=== PATIENT | female | born 1990 | race Two or more races ===

== ENCOUNTER 2018-01-31 11:15 | Outpatient (CLI) | payer OTHER | END 2018-01-31 15:36 | disposition home or self-care (01) | LOC: RAD 11:15 | DX: M54.9 Dorsalgia, unspecified (principal) ==

== ENCOUNTER → 2018-01-31 | Outpatient (CLI) | payer OTHER ==
[~2018-01-31] MED LIST: CEFADROXIL500 MG PO; ZANTAC150 MG PO
== END | disposition home or self-care (01) ==
LOC: PPHC 10:12
DX: M54.89 Other dorsalgia (principal)

== ENCOUNTER 2019-02-14 15:02 | Outpatient (CLI) | payer OTHER | END 2019-02-14 15:27 | disposition home or self-care (01) | LOC: SONOGRAMA 15:02 → MAMO-SONO 15:15 → SONOGRAMA 15:27 | DX: R10.2 Pelvic and perineal pain (principal) ==

== ENCOUNTER → 2019-03-13 11:24 | Outpatient (CLI) | payer OTHER | END | disposition home or self-care (01) | LOC: LAB 11:24 | DX: N30.00 Acute cystitis without hematuria (principal) ==

== ENCOUNTER 2019-10-20 13:18 | Outpatient (CLI) | payer OTHER | END 2019-10-20 13:25 | disposition home or self-care (01) | LOC: SONOGRAMA 13:18 | DX: R10.2 Pelvic and perineal pain (principal); N83.00 Follicular cyst of ovary, unspecified side ==

== ENCOUNTER 2020-04-02 15:09 | Outpatient (CLI) | payer OTHER | END 2020-04-02 15:18 | disposition home or self-care (01) | LOC: SONOGRAMA 15:09 | DX: R10.11 Right upper quadrant pain (principal); N30.90 Cystitis, unspecified without hematuria ==

== ENCOUNTER 2020-12-08 06:10 | Inpatient (IN) | payer OTHER ==
[~2020-12-08] VITALS: Ht 170.2 cm; Wt 71.7 kg
[2020-12-10] MEDS ORDERED: CODE1TAB37 PO (07:53)
[2020-12-10] MEDS ORDERED: KETO10TA2 PO (07:54)
== END 2020-12-10 13:04 | disposition home or self-care (01) | DRG 743 ==
LOC: CIR.AMB 06:10 → O/R 11:19 → OB/GYN 11:19 → CIR.AMB 12:45 → OB/GYN 12-10 13:04
PROVIDERS: ADMIT Obstetrics & Gynecology Maternal & Fetal Medicine; ATTEND Obstetrics & Gynecology Maternal & Fetal Medicine
PROC: 0UB10ZZ Excision of Left Ovary, Open Approach (ICD-10-PCS; principal; 2020-12-08 09:15)
DX: D27.1 Benign neoplasm of left ovary (principal)

== ENCOUNTER 2022-09-07 11:54 | Emergency (ER) | payer OTHER ==
[~2022-09-07] VITALS: Ht 167.6 cm; Wt 77.1 kg
[~2022-09-07 11:54] MED LIST changes: +CODE1TAB37 PO; +KETO10TA2 PO
== END 2022-09-07 13:23 | disposition home or self-care (01) ==
LOC: ER 11:54
DX: L20.9 Atopic dermatitis, unspecified (principal); Z91.013 Allergy to seafood

== ENCOUNTER 2023-12-06 11:48 | Emergency (ER) | payer OTHER ==
[~2023-12-06] VITALS: Ht 167.6 cm; Wt 80.3 kg
[2023-12-06 13:35] LABS: HEMATOCRIT 41.1 % (36.0-45.00); HEMOGLOBIN 14.2 g/dL (12.0-15.00); MEAN CORPUSCULAR HEMOGLOBIN 32.4 pg (27.00-32.0); MEAN CORPUSCULAR HGB CONC 34.5 g/dl (32.0-36.0); PLATELET COUNT 226 K/uL (150-450); RED BLOOD COUNT 4.38 M/uL (4.00-6.00); RED CELL DISTRIBUTION WIDTH 13.1 % (11.5-14.5)
[2023-12-06 14:10] LABS: CALCIUM 9.1 mg/dL (8.5-10.1); CREATININE SERUM 0.7 mg/dL (0.55-1.02); GFR 96.37; POTASSIUM 3.54 mEq/L (3.5-5.1)
[2023-12-06] MEDS ORDERED: PEPCID AC20 MG PO (16:52)
[2023-12-06] MEDS ORDERED: ONDANSETRON ODT8 MG PO (16:52)
== END 2023-12-06 17:01 | disposition home or self-care (01) ==
LOC: ER 11:49
PROVIDERS: Emergency Medicine
DX: K29.70 Gastritis, unspecified, without bleeding (principal); R10.13 Epigastric pain; Z91.013 Allergy to seafood

== ENCOUNTER 2025-06-24 10:11 | Emergency (ER) | payer OTHER ==
[~2025-06-24] VITALS: Ht 167.6 cm; Wt 87.5 kg
[~2025-06-24 10:11] MED LIST changes: +ONDANSETRON ODT8 MG PO; +PEPCID AC20 MG PO
[2025-06-24 10:46] VITALS: O2SAT 100
[2025-06-24] MEDS ORDERED: NIFEDIPINE 10 MG CAPSULE PO ONE (11:15)
[2025-06-24] MEDS ORDERED: TRAMADOL HCL 50 MG TABLET PO ONE (11:30)
[2025-06-24 12:48] LABS: BASO % 0.6 % (0.1-1.2); EOS # 0.06 (0.04-0.54); EOS % 0.7 % (0.7-7.0); LYMPH # 1.31 (1.18-3.74); LYMPH % 16.3 % (19.3-53.1); MEAN PLATELET VOLUME 10.80 fl (9.4-12.4); MONO # 0.56 (0.24-0.82); MONO % 7.0 % (4.7-12.5); NEUT # 6.05 (1.56-6.13); NEUT % 75.2 % (34.0-71.1); RED CELL DISTRIBUTION WIDTH 12.0 % (11.6-14.4)
[2025-06-24 12:49] VITALS: BP 139/90
[2025-06-24 13:13] LABS: ALT/SGPT 23 U/L (12-78); AST/SGOT 13 U/L (15-37); BILIRUBIN TOTAL 0.55 mg/dL (0.3-1.2); BUN CREA RATIO 10 (7.0-25.0); CREATININE SERUM 0.69 mg/dL (0.55-1.02); GFR 97.39; GLOBULINA 4.0 G/DL (2.4-3.5); GLUCOSE FASTING 80 mg/dL (65-100); OSMOLALITY SERUM 276 MOSM/KG (275-295)
[2025-06-24 13:19] LABS: HCG QUANTITATIVE < 1 mUI/mL (1-3)
[2025-06-24 14:24] LABS: COVID-19 AG NEGATIVE (NEGATIVE)
[2025-06-24] MEDS ORDERED: BUTALBIT-ACETA1 EACH PO (14:34)
== END 2025-06-24 14:51 | disposition home or self-care (01) ==
LOC: ER 10:11
PROVIDERS: General Practice
DX: I10 Essential (primary) hypertension (principal); R51.9 Headache, unspecified; Z20.822 Contact with and (suspected) exposure to COVID-19; Z88.2 Allergy status to sulfonamides; Z91.013 Allergy to seafood

== ENCOUNTER → 2025-09-07 10:56 | Outpatient (CLI) | payer OTHER ==
[~2025-09-07 10:56] MED LIST changes: +BUTALBIT-ACETA1 EACH PO
== END | disposition home or self-care (01) ==
LOC: NUCLEAR 10:56
DX: I10 Essential (primary) hypertension (principal); I11.9 Hypertensive heart disease without heart failure